=== PATIENT | female | born 1990 | race Caucasian/White ===

== ENCOUNTER 2018-04-12 13:30 | Inpatient (IN) | payer OTHER ==
[~2018-04-12] VITALS: Ht 154.9 cm; Wt 99.8 kg
== END 2018-04-16 17:34 | disposition home or self-care (01) | DRG 345 ==
LOC: ER 13:30 → SURH 19:20
PROVIDERS: ADMIT Colon & Rectal Surgery
PROC: BW21Y0Z Computerized Tomography (CT Scan) of Abdomen and Pelvis using Other Contrast, Unenhanced and Enhanced (ICD-10-PCS; 2018-04-12)
PROC: 0JB80ZZ Excision of Abdomen Subcutaneous Tissue and Fascia, Open Approach (ICD-10-PCS; 2018-04-14)
PROC: 3E10X8Z Irrigation of Skin and Mucous Membranes using Irrigating Substance (ICD-10-PCS; 2018-04-14)
PROC: 0D9P0ZZ Drainage of Rectum, Open Approach (ICD-10-PCS; principal; 2018-04-14 20:45)
DX: K61.1 Rectal abscess (principal); L02.31 Cutaneous abscess of buttock